=== PATIENT | male | born 1995 | race Caucasian/White ===

== ENCOUNTER 2017-08-26 19:18 | Emergency (ER) | payer OTHER ==
[~2017-08-26] VITALS: Ht 182.9 cm; Wt 97.7 kg
[2017-08-26] MEDS ORDERED: ULTRAM50 M1 PO (21:16)
[2017-08-26] MEDS ORDERED: FLEXERIL PO (21:16)
[2017-08-26 21:30] VITALS: BP 132/72
== END 2017-08-26 21:31 | disposition home or self-care (01) | DRG 552 ==
LOC: ED 19:18
DX: M51.9 Unspecified thoracic, thoracolumbar and lumbosacral intervertebral disc disorder (principal); F17.210 Nicotine dependence, cigarettes, uncomplicated

== ENCOUNTER 2017-11-27 12:32 | Emergency (ER) | payer OTHER ==
[~2017-11-27] VITALS: Ht 182.9 cm; Wt 99.5 kg
[~2017-11-27 12:32] MED LIST: FLEXERIL PO; ULTRAM50 M1 PO
[2017-11-27] MEDS ORDERED: FLEXERIL PO (13:20)
[2017-11-27] MEDS ORDERED: ULTRAM50 M1 PO (13:20)
[2017-11-27 13:23] VITALS: BP 140/80
== END 2017-11-27 13:24 | disposition home or self-care (01) | DRG 552 ==
LOC: ED 12:32
DX: M54.5 Low back pain (principal); G89.29 Other chronic pain; F17.210 Nicotine dependence, cigarettes, uncomplicated